=== PATIENT | female | born 1930 | race Caucasian/White ===

== ENCOUNTER 2019-07-01 09:58 | Inpatient (IN) | payer MEDICARE ==
[~2019-07-01] VITALS: Ht 160 cm; Wt 61.0 kg
[~2019-07-01 09:58] MED LIST: ALUMAG30SU PO; DOCU100 PO; FENO145; FLONASE ALLERG9.9 ML NS; GABA100 PO; HYDACE5; LETR2.5; LETR2.5 PO; LEVSOD50 PO; LEVSOD75; OLME20; OLME5TAB PO; OLOP.1OPSO RIGHTEYE; Omeprazole20 M1; Prilosec Otc20 MG PO; ROSU10TA; TRAM50 PO; Tamiflu75 MG PO; Zofran4 MG PO
[2019-07-01 10:35] LABS: BASOPHILS ABSOLUTE AUTO 0.11 K/mm3 (0.00-0.23); BASOPHILS PERCENT AUTO 1 % (0-2); EOSINOPHILS ABSOLUTE AUTO 0.29 K/mm3 (0.00-0.68); EOSINOPHILS PERCENT AUTO 4 % (0-6); Hemoglobin 13.1 g/dL (11.5-16.0); IMMATURE GRAN ABSOLUTE AUTO 0.03 K/mm3 (0.00-0.10); IMMATURE GRAN PERCENT AUTO 0 % (0-1); LYMPHOCYTES ABSOLUTE AUTO 2.65 K/mm3 (0.84-5.20); LYMPHOCYTES PERCENT AUTO 33 % (21-46); MONOCYTES ABSOLUTE AUTO 0.68 K/mm3 (0.16-1.47); MONOCYTES PERCENT AUTO 8 % (4-13); Mean Corpuscular HGB 30.5 pg (26.0-34.0); Mean Corpuscular Volume 96 fL (80-100); Mean Platelet Volume 10.8 fL (9.1-12.4); NEUTROPHILS ABSOLUTE AUTO 4.39 K/mm3 (1.96-9.15); NEUTROPHILS PERCENT AUTO 54 % (41-73); Platelet Count 338 K/mm3 (150-400); RDW Coefficient Variation 13.7 % (11.7-14.2); RDW Standard Deviation 48.2 fL (35.1-46.3); Red Blood Cell Count 4.29 M/mm3 (3.80-5.20); White Blood Cell Count 8.15 K/mm3 (4.00-11.30)
[2019-07-01 11:03] LABS: Alanine Aminotransfer (ALT/SGP 22 U/L (12-78); Albumin, Blood 4.6 g/dL (3.4-5.0); Albumin/Globulin Ratio 1.2 (0.8-1.8); Alk Phos 62 U/L (50-136); Anion Gap 8 mmol/L (6-16); Aspartate Aminotrans (AST/SGOT 14 U/L (12-37); Bilirubin, Total 0.5 mg/dL (0.1-1.0); Blood Urea Nitrogen 18 mg/dL (8-24); Bun/Creatinine Ratio 14.5 (12.0-20.0); CO2, Blood 26 mmol/L (21-32); Calcium, Blood 10.2 mg/dL (8.5-10.1); Chloride, Blood 104 mmol/L (98-108); Creatinine, Blood 1.24 mg/dL (0.40-1.00); Glomerular Filtration Rate 43 (60-); Glucose, Blood 102 mg/dL (70-99); Potassium, Blood 4.2 mmol/L (3.5-5.5); Sodium, Blood 138 mmol/L (136-145); Total Protein, Blood 8.6 g/dL (6.4-8.2); Troponin I <0.015 ng/mL (0.000-0.040)
[2019-07-01] MEDS ORDERED: OMEP20ER PO (11:29)
[2019-07-01] MEDS ORDERED: LINZESS145 MCG PO (11:29)
[2019-07-01] MEDS ORDERED: ELIQUIS2.5 MG PO (11:29)
[2019-07-01] MEDS ORDERED: Metformin HCl500 M1 PO (11:29)
[2019-07-01] MEDS ORDERED: ROSU10TA PO (12:12)
[2019-07-01] MEDS ORDERED: VITAMIN D31000 UNIT PO (12:13)
--- NOTE | 2019-07-01 13:27 | NUR ---
Telephone report was received from MARLYN Landry RN at this time. He states that the pt is being [facility] at this time for a pacemaker placement.
--- NOTE | 2019-07-01 17:29 | NUR ---
Received the pt to PCU 11 from the [facility]; bedside report recieved. The pt is awake, denies hunger, thirst, pain or discomfort. Wound visualized on the left upper chest: No swelling, bruising, bleeding, or drainage noted. Gauze under transparent tegederm dressing is clean, dry and intact. Pt was instructed on activity restrictions for the left arm, per Dr. Taylor's written instructions, which were also provided to the patient. Sling was placed on the left arm to prevent the pt from moving the arm. Vital signs are stable.
--- NOTE | 2019-07-01 19:15 | NUR ---
The pt c/o soreness on her left chest wall, for which Tylenol was given just before 6 pm. About 45 minutes later, she c/o itchiness all around her neck, back and upper mid chest. The area was noted to be red, without any raised areas. Dr. Jack was called and Benadryl was ordered and given to the patient. At this time of bedside report, the pt states it is still very itchy. Noted it is still red. At the time of bedside report, she was also having "shakiness" and her arms were tremulous. She states that this "runs in the family" and she has it intermittently. STates that it also occured during the pacemaker surgery today. She states she does not have any idea why it happens to her. Assisted to the bathroom to void by the GARBAGE [employer]LECTION SUPERVISOR.
--- NOTE | 2019-07-01 20:35 | NUR ---
PATIENT WAS UP TO THE BATHROOM WITH ANDREW BLACKBURN. PATIENT BECAME LIGHTHEADED AND SWEATING WHILE SITTING ON THE TOILET. JACQUARD FIXER ASSISTED HER BACK TO BED AND STATED SHE THOUGHT PATIENT GOT PALER THAN SHE WAS. STATES THE PATIENT BARELY MADE IT TO THE BED WITHOUT PASSING OUT. PATIENT BECAME NAUSEATED. PATIENT BP WAS STABLE AT THIS POINT. PATIENT LAYED IN BED AND BEGAN SHAKING VIGOROUSLY. PATIENT STATED THAT SHE DOES THIS SOMETIMES. PATIENT BECAME NAUSEATED. BP RECHECKED AND NOTED IN THE 80'S. PATIENT VOMITED APPROX. 30 CC OF GREEN BILE. BP RECHECKED NOW STABLE. EKG DONE TO VERIFY NO ST CHANGES NOTED. AND POST PROCEDURE XRAY COMPLETED. DR. PENNY NOTIFIED OF INCIDENT. STATES THAT IT WAS MOST LIKELY A VAGAL RESPONSE. KEEP PATIENT IN BED AND MONITOR VITALS. NO IV FLUIDS NEEDED DURING THE NIGHT.
--- NOTE | 2019-07-01 22:05 | NUR ---
PATIENT RECIEVED ANCEF IV AND AFTER INFUSE WAS COMPLETED SHE WAS COMPLAINING OF INCREASED ITCHINESS. PATIENT FACE WAS BRIGHT RED AND HAS A ORAL TEMP OF 99.7. PATIENT FEELS FLUSHED AND HOT. NOTIFIED DR. LAKE WHO ORDER TO DISCONTINUE ANCEF, GIVEN BENADRYL 25MG PO NOW X1 AND CONTINUE TO MONITOR.
[2019-07-02 03:49] LABS: Albumin, Blood 3.4 g/dL (3.4-5.0); Albumin/Globulin Ratio 1.1 (0.8-1.8); Bilirubin, Total 0.5 mg/dL (0.1-1.0); Creatinine, Blood 1.19 mg/dL (0.40-1.00); Globulin, Blood 3.1 g/dL (2.2-4.0); Potassium, Blood 4.3 mmol/L (3.5-5.5)
[2019-07-02 03:54] LABS: Total Protein, Blood 6.5 g/dL (6.4-8.2)
[2019-07-02 04:08] LABS: Hematocrit 36.3 % (33.0-51.0); Hemoglobin 11.6 g/dL (11.5-16.0); Mean Corpuscular HGB 30.7 pg (26.0-34.0); Mean Corpuscular Volume 96 fL (80-100); Mean Platelet Volume 10.8 fL (9.1-12.4); Platelet Count 212 K/mm3 (150-400); RDW Coefficient Variation 13.8 % (11.7-14.2); RDW Standard Deviation 49.1 fL (35.1-46.3); Red Blood Cell Count 3.78 M/mm3 (3.80-5.20); White Blood Cell Count 10.37 K/mm3 (4.00-11.30)
[2019-07-02 04:24] LABS: BAND PERCENT MAN 30 % (0-8); BASOPHILS PERCENT MAN 0 % (0-2); EOSINOPHILS PERCENT MAN 1 % (0-6); LYMPHOCYTES PERCENT MAN 1 % (21-46); MONOCYTES ABSOLUTE MAN 0.51 K/mm3 (0.16-1.47); MONOCYTES PERCENT MAN 5 % (4-13); NEUTROPHILS ABSOLUTE MAN 9.64 K/mm3 (1.96-9.15); SEG NEUTROPHILS PERCENT MAN 63 % (41-73); TOTAL CELLS COUNTED 100
--- NOTE | 2019-07-02 06:20 | NUR ---
PATIENT CONTINUED TO HAVE INTERMITENT ITCHINESS. PATIENT HAVING HOT FLASHES, WITH NO FURTHER TEMPERATURES. PATIENT DENIES ANY PAIN. NO CHANGE IN PACER SITE ON LEFT CHEST WALL. PATIENT USED BEDPAN FOR THE REST OF THE NIGHT. CALLING APPROPRIATELY.
[2019-07-02] MEDS ORDERED: XARELTO1 EACH PO (10:56)
[2019-07-02] MEDS ORDERED: ACET325 PO (10:57)
== END 2019-07-02 11:20 | disposition home or self-care (01) | DRG 243 ==
LOC: ER 09:58 → PCU 12:36
PROVIDERS: Emergency Medicine; ADMIT Family Medicine
PROC: 0JH606Z Insertion of Pacemaker, Dual Chamber into Chest Subcutaneous Tissue and Fascia, Open Approach (ICD-10-PCS; principal; 2019-07-01)
PROC: 02HL3JZ Insertion of Pacemaker Lead into Left Ventricle, Percutaneous Approach (ICD-10-PCS; 2019-07-01)
PROC: 3E0102A Introduction of Anti-Infective Envelope into Subcutaneous Tissue, Open Approach (ICD-10-PCS; 2019-07-01)
DX: I44.2 Atrioventricular block, complete (principal); I13.0 Hypertensive heart and chronic kidney disease with heart failure and stage 1 through stage 4 chronic kidney disease, or unspecified chronic kidney disease; I10 Essential (primary) hypertension; R55 Syncope and collapse; N18.3 Chronic kidney disease, stage 3 (moderate); I50.9 Heart failure, unspecified; K21.9 Gastro-esophageal reflux disease without esophagitis; E78.5 Hyperlipidemia, unspecified
CPT/HCPCS: 33208; 36415; 71045; 71046; 80053; 82947; 83880; 84484; 85025; 93005; 93010; 99152; 99153; 99285-25; A9270; C1769; C1785; C1898; J0690; J1644; J2250; J2405; J3010; J7030; J7040; Q0163; Q9967

== ENCOUNTER → 2020-05-15 | Outpatient (CLI) | payer MEDICARE ==
[~2020-05-15] MED LIST changes: +ACET325 PO; +ELIQUIS2.5 MG PO; +LINZESS145 MCG PO; +Metformin HCl500 M1 PO; +OMEP20ER PO; +ROSU10TA PO; +VITAMIN D31000 UNIT PO; +XARELTO1 EACH PO
[2020-05-15 14:32] LABS: Protein, Urine Quantitative <5.0 mg/dL (0.0-11.9)
== END ==
LOC: LAB 12:04 → LAB SHORT 12:04 → LAB FUT 05-14 10:45
PROVIDERS: Internal Medicine Nephrology
DX: N18.3 Chronic kidney disease, stage 3 (moderate) (principal); D63.1 Anemia in chronic kidney disease; R80.9 Proteinuria, unspecified
CPT/HCPCS: 81050; 82043; 82570; 84156